=== PATIENT | male | born 1955 | race Caucasian/White ===

== ENCOUNTER 2021-12-09 10:29 | Emergency (ER) | payer OTHER, SELFPAY ==
[2021-12-09 10:45] VITALS: BP 150/77; PULSE 47; RESP 16; TEMP 36.8; O2SAT 100
--- NOTE | 2021-12-09 11:23 | ED.GENADULT ---
HPI - General Adult General Chief complaint: Neck Pain/Injury Stated complaint: pain on right side face/neck Time Seen by Provider: 12/09/21 11:24 Source: patient, RN notes reviewed and old records reviewed Mode of arrival: ambulatory Limitations: no limitations History of Present Illness HPI narrative: 66-year-old male who presents to [facility] care with complaints of right jaw pain for the past 1 1/2 weeks with some radiation of pain to his right neck for past week. Patient states that 3 weeks ago he had regular dental cleaning and xray exams with no dental abnormality. He reports that eating tends to make his discomfort worse has not noted any swelling of his face. He states that he has taken some Aspirin for his pain. Patient denies any tingling or numbness to his face. MD complaint: right jaw pain Onset (ago): week(s) (1.5) Severity scale (1-10): 1 Treatments prior to arrival: aspirin Related Data Allergies Allergy/AdvReac Type Severity Reaction Status Date / Time No Known Allergies Allergy Verified 12/09/21 10:51 Review of Systems Review of Systems: CONSTITUTIONAL: Denies fever, chills, or sweats. EYES: Denies visual changes, redness, or discharge. ENT: Denies rhinorrhea, congestion, sore throat, or otalgia.positive for right jaw pain with some radiation to right neck CARDIOVASCULAR: Denies chest pain, palpitations, or edema RESPIRATORY: Denies cough or dyspnea. GASTROINTESTINAL: Denies abdominal pain, nausea, vomiting, or diarrhea. GENITOURINARY: Denies dysuria or hematuria. SKIN: Denies rash or itching. MUSCULOSKELETAL: Denies back pain, joint pain, or myalgia. NEUROLOGIC: Denies headache, numbness, or weakness. PSYCHIATRIC: Denies anxiety or depression. [facility] Past Medical History Medical History (Updated 12/10/21 @ 22:00 by Carla Culp NP) PVC's (premature ventricular contractions) Surgical History Surgical History (Updated 12/10/21 @ 22:01 by Carla Culp NP) No history of previous surgery Social History Social History (Updated 12/10/21 @ 22:02 by Carla Culp NP) Smoking status: Former smoker Additional smoking assessment comments: Quit in 1992 after smoking 14 years Alcohol intake: current Alcohol use details: rare Substance use: never Living arrangements: with family Gender identity (if verbalized by the patient): Male Comments At time of signature, agree with nursing past medical, surgical, social and family history. There is no relevant family history pertinent to the presenting complaint Exam Narrative: GENERAL: Well-appearing, well-nourished, and in no acute distress. HEAD: Normocephalic, atraumatic. EYES: PERRLA and EOMI. ENT: Nares clear, no rhinorrhea or epistaxis. Mucous membranes moist.TM's normal with good light reflex, throat pink with no lesions or exudates, no tonsil swelling, No gum redness or swelling noted, no parotid gland enlargement, no obvious salivary gland lesion, face is symmetrical tongue is midline, no neck palpable lesions or lymphadenopathy NECK: Supple. no lymphadenopathy CHEST: Clear to auscultation. No respiratory distress.SAO2 100% on room air HEART: Regular rate and rhythm. No murmur heard. Normal peripheral pulses. ABDOMEN: Soft, nontender, nondistended, normal active bowel sounds. EXTREMITIES: Normal range of motion. No edema. SKIN: Warm, dry, no rash. NEURO: No focal deficits. Alert and oriented x3. Course Course Level of Care: Express Care Visit Vital Signs Vital signs: Vital Signs Temperature 36.8 C 12/09/21 10:45 Pulse Rate 47 L 12/09/21 10:45 Respiratory Rate 16 12/09/21 10:45 Blood Pressure 150/77 H 12/09/21 10:45 Pulse Oximetry 100 12/09/21 10:45 Temperature 36.8 C 12/09/21 10:45 Pulse Rate 47 L 12/09/21 10:45 Respiratory Rate 16 12/09/21 10:45 Blood Pressure 150/77 H 12/09/21 10:45 Pulse Oximetry 100 12/09/21 10:45 Medical Decision Making Differential Diagnosis Differentia
== END 2021-12-09 11:56 | disposition home or self-care (01) ==
PROVIDERS: Emergency Provider Registered Nurse
DX: R68.84 Jaw pain (principal); Z87.891 Personal history of nicotine dependence
CPT/HCPCS: 99213; G0463